=== PATIENT | female | born 1975 | race Caucasian/White ===

== ENCOUNTER 2018-07-27 14:41 | Inpatient (IN) | payer SELFPAY ==
[2018-07-27] VITALS (9 sets, daily range): BP systolic 108–114; BP diastolic 64–82
[~2018-07-27] VITALS: Ht 172.7 cm; Wt 59.9 kg
--- NOTE | 2018-07-27 14:41 | NUR ---
PT BIB SELF C/O vaginal bleeding x 7 dayS, PT IS AAOX4, NOT IN RESPIRATORY DISTRESS, V/S STABLE, KEPT RESTED AND COMFORTABLE.
--- NOTE | 2018-07-27 15:10 | NUR ---
PT SEEN AND EXAMINED BY ASHUTOSH TRAORE.
--- NOTE | 2018-07-27 15:30 | NUR ---
PT IV LINE ESTABLISHED, LABS DRAWNED AND SENT TO LAB.
--- NOTE | 2018-07-27 15:36 | NUR ---
TECH AT BEDSIDE FOR PELVIC US.
[2018-07-27 15:37] LABS: BASOPHILS # (AUTO) 0.1 /CMM (0.0-0.2); BASOPHILS % (AUTO) 1.1 % (0.0-2.0); EOSINOPHILS % (AUTO) 2.6 % (0.0-6.0); HEMATOCRIT 26 % (33-45); HEMOGLOBIN 7.2 g/dL (11.5-14.8); LYMPHOCYTES # (AUTO) 2.5 /CMM (0.8-4.8); LYMPHOCYTES % (AUTO) 35.3 % (20.0-44.0); MEAN CORPUSCULAR HGB CONC 28 g/dl (31.0-36.0); MEAN CORPUSCULAR VOLUME 60 fL (82-100); MONOCYTES # (AUTO) 0.4 /CMM (0.1-1.30); MONOCYTES % (AUTO) 6.1 % (2.0-12.0); NEUTROPHILS # (AUTO) 3.8 /CMM (1.8-8.9); NEUTROPHILS % (AUTO) 54.9 % (43.0-81.0); PLATELET COUNT (AUTO) 436 /CMM (150-450); RED BLOOD CELL COUNT(AUTO) 4.29 MIL/uL (4.0-5.2)
[2018-07-27 15:46] LABS: CALCIUM, SERUM 9.2 mg/dL (8.5-10.1); CREATININE 0.6 mg/dL (0.6-1.3); POTASSIUM 3.6 mmol/L (3.5-5.1)
[2018-07-27 15:57] LABS: ALBUMIN 4.1 g/dL (3.4-5.0); BILIRUBIN,DIRECT 0.1 mg/dL (0.0-0.2); BILIRUBIN,TOTAL 0.3 mg/dL (0.2-1.0); TOTAL PROTEIN, SERUM 8.2 g/dL (6.4-8.2)
--- NOTE | 2018-07-27 16:15 | NUR ---
DR JOLIE MENDEZ
--- NOTE | 2018-07-27 18:45 | NUR ---
AGUSTÍNII ONION TOPPER AT BEDSIDE FOR PELVIC EXAM, NOTED BLEEDING UPON EXAMINATION.
[2018-07-27] MEDS ORDERED: MEGESTROL ACETATE 40 MG TABLET PO ONE (19:00)
--- NOTE | 2018-07-27 19:08 | NUR ---
STEVEN PAGED, KELVIN MICHAEL CAUL PULLER SERVER MANAGER
[2018-07-27] MEDS ORDERED: HYDROCODONE/APAP 5/325MG 1 EACH TABLET PO PRN ×2 (19:30→20:30)
[2018-07-27] MEDS ORDERED: MAG HYDROX/AL HYDROX/SIMETH 30 ML UDC PO PRN ×2 (19:30→20:30)
[2018-07-27] MEDS ORDERED: ACETAMINOPHEN 325 MG TABLET PO PRN ×2 (19:30→20:30)
[2018-07-27] MEDS ORDERED: MAGNESIUM HYDROXIDE 30 ML UDC PO PRN ×2 (19:30→20:30)
[2018-07-27] MEDS ORDERED: IV NS 0.9% 1,000 ML BAG IV ONE (19:30)
[2018-07-27] MEDS ORDERED: ONDANSETRON HCL/PF 4 MG/2 ML VIAL IVP PRN ×2 (19:30→20:30)
[2018-07-27] MEDS ORDERED: ZOLPIDEM TARTRATE 5 MG TABLET PO PRN ×2 (19:30→20:30)
[2018-07-27] MEDS ORDERED: Z GUARD REMEDY 2 OZ OINT TP PRN ×2 (19:30→20:30)
[2018-07-27 19:32] LABS: HEMOGLOBIN 6.5 g/dL (11.5-14.8)
--- NOTE | 2018-07-27 19:32 | NUR ---
CALLED NURSING SUP. FOR TELE BED
--- NOTE | 2018-07-27 20:00 | NUR ---
TELE 316-1
--- NOTE | 2018-07-27 20:11 | NUR ---
REPORT GIVEN TO RN RVI FOR DIMA, IV NS STILL INFUSING.
--- NOTE | 2018-07-27 20:11 | NUR ---
Lukasz campo in EDM - 07/27/18 at 2016 by NICOLASA REPORT GIVEN TO RN RVI FOR DIMA, IV NS STILL INFUSING.
--- NOTE | 2018-07-27 20:23 | NUR ---
RECEIVED PATIENT FROM ER FOR DX VAGINAL BLEEDING. AO X 3, ABLE TO MAKE NEEDS KNOWN. NO ACUTE DISTRESS NOTED. DENIES ANY PAIN AT THIS TIME. VERY SCANT VAGINAL BLEEDING NOTED AT THIS TIME. SKIN INTACT. TELE READING SINUS RHYTHM HR 79. IV SITE PATENT, INTACT; FLUSHED. SAFETY REMINDERS GIVEN. ORIENTATION TO ROOM AND UNIT GIVEN TO PATIENT. ON LOW BED WITH BILATERAL UPPER SIDE RAILS UP. CALL [facility]NA WITHIN EASY REACH. WILL CONTINUE TO MONITOR.
[2018-07-28] VITALS (7 sets, daily range): BP systolic 107–118; BP diastolic 64–72
--- NOTE | 2018-07-28 01:56 | NUR ---
PER KELVIN TRAORE, ORDER H/H TO BE DRAWN ONE HOUR AFTER BLOOD TRANSFUSION AND Q 4 HOURS THEREAFTER, NOTED AND CARRIED OUT. PATIENT MADE AWARE.
[2018-07-28 02:34] LABS: HEMOGLOBIN 7.3 g/dL (11.5-14.8)
--- NOTE | 2018-07-28 06:11 | NUR ---
PATIENT ASLEEP, EASILY AROUSABLE. RESPIRATIONS EVEN. NO SIGNS OF PAIN NOTED. PATIENT TOLERATED BLOOD TRANSFUSION WITH NO ADVERSE REACTION. H/H ONE HOUR AFTER TRANSFUSION IS 7.3/24. NEEDS ATTENDED. SAFETY PRECAUTIONS AND COMFORT MEASURES IN PLACE. WILL GIVE REPORT TO DAY SHIFT FOR CONTINUITY OF CARE.
[2018-07-28] MEDS ORDERED: PANTOPRAZOLE 40 MG TABLET.DR PO SCH (07:30)
--- NOTE | 2018-07-28 07:35 | NUR ---
ms rn receive don bed, awake,alert,oriented x4,not in any form of distress noted, came in w/ vaginal bleeding, no active bleeding at this time. lungs are clear,abdomen soft,positive bowel sounds, denies pain at this time, all needs attended.
[2018-07-28 08:03] LABS: BASOPHILS # (AUTO) 0.1 /CMM (0.0-0.2); BASOPHILS % (AUTO) 1.4 % (0.0-2.0); EOSINOPHILS % (AUTO) 4.9 % (0.0-6.0); HEMATOCRIT 25 % (33-45); HEMOGLOBIN 7.5 g/dL (11.5-14.8); LYMPHOCYTES # (AUTO) 2.2 /CMM (0.8-4.8); LYMPHOCYTES % (AUTO) 33.4 % (20.0-44.0); MEAN CORPUSCULAR HGB CONC 30 g/dl (31.0-36.0); MEAN CORPUSCULAR VOLUME 62 fL (82-100); MONOCYTES # (AUTO) 0.6 /CMM (0.1-1.30); MONOCYTES % (AUTO) 9.5 % (2.0-12.0); NEUTROPHILS # (AUTO) 3.4 /CMM (1.8-8.9); NEUTROPHILS % (AUTO) 50.8 % (43.0-81.0); PLATELET COUNT (AUTO) 312 /CMM (150-450); RED BLOOD CELL COUNT(AUTO) 4.01 MIL/uL (4.0-5.2); WHITE BLOOD COUNT (AUTO) 6.6 K/uL (4.3-11.0)
[2018-07-28 08:23] LABS: CALCIUM, SERUM 8.2 mg/dL (8.5-10.1); CREATININE 0.5 mg/dL (0.6-1.3); MAGNESIUM 1.8 mg/dL (1.8-2.4); PHOSPHORUS 3.2 mg/dL (2.5-4.9); POTASSIUM 3.7 mmol/L (3.5-5.1)
[2018-07-28 08:30] LABS: THYROID STIMULATING HORMONE 3.133 uIU/mL (0.358-3.74)
[2018-07-28 08:45] LABS: LYMPHOCYTES % (MANUAL) 28 % (16-48); MONOCYTES % (MANUAL) 7 % (0-11.0); NEUTROPHILS % (MANUAL) 65 (42-76)
[2018-07-28] MEDS ORDERED: DOCUSATE SODIUM 100 MG CAPSULE PO SCH (09:00)
[2018-07-28] MEDS ORDERED: MEGESTROL ACETATE 40 MG TABLET PO SCH (09:00)
[2018-07-28] MEDS: MEGESTROL ACETATE 40 MG TABLET PO SCH (09:20)
[2018-07-28] MEDS: PANTOPRAZOLE 40 MG TABLET.DR PO SCH (09:20)
[2018-07-28] MEDS: DOCUSATE SODIUM 100 MG CAPSULE PO SCH ×2 (09:20→18:12)
--- NOTE | 2018-07-28 09:55 | NUR ---
ms martin breakfast served,due meds given,.tolerated well.
--- NOTE | 2018-07-28 10:30 | NUR ---
ms rn left message to dr. queen's cell phone for consult.
[2018-07-28 13:14] LABS: HEMOGLOBIN 8.4 g/dL (11.5-14.8)
--- NOTE | 2018-07-28 18:50 | NUR ---
ms rn still waiting for dr. reyes, patient still here, maybe d/c tomorrow.
--- NOTE | 2018-07-28 19:30 | NUR ---
RECEIVED PATIENT IN BED AWAKE. AO X 3, ABLE TO MAKE NEEDS KNOWN. NO ACUTE DISTRESS NOTED. DENIES ANY PAIN AT THIS TIME. NOTED TO HAVE VERY SCANT BLEEDING AT THIS TIME. IV SITE PATENT, INTACT; FLUSHED. SAFETY REMINDERS GIVEN. ON LOW BED WITH BILATERAL UPPER SIDE RAILS UP. CALL [facility]ARENA WITHIN EASY REACH. WILL CONTINUE TO MONITOR.
--- NOTE | 2018-07-29 06:30 | NUR ---
PATIENT ASLEEP, EASILY AROUSABLE. RESPIRATIONS EVEN. NO SIGNS OF PAIN NOTED. NEEDS ATTENDED. SAFETY PRECAUTIONS AND COMFORT MEASURES IN PLACE. WILL GIVE REPORT TO DAY SHIFT FOR CONTINUITY OF CARE.
--- NOTE | 2018-07-29 07:15 | NUR ---
RN NOTES PATIENT A/OX4, BREATHING EVEN AND UNLABORED, PER PATIENT SHE DOESN'T HAVE ANY EPISODES OF VAGINAL BLEEDING ANYMORE. DENIES PAIN OR DISCOMFORT, CALL LIGHT WITHIN REACH, WILL CONTINUE TO MONITOR.
[2018-07-29 07:55] LABS: BASOPHILS # (AUTO) 0.1 /CMM (0.0-0.2); BASOPHILS % (AUTO) 1.7 % (0.0-2.0); EOSINOPHILS % (AUTO) 8.4 % (0.0-6.0); HEMATOCRIT 26 % (33-45); HEMOGLOBIN 7.6 g/dL (11.5-14.8); LYMPHOCYTES # (AUTO) 1.9 /CMM (0.8-4.8); LYMPHOCYTES % (AUTO) 29.2 % (20.0-44.0); MEAN CORPUSCULAR HGB CONC 30 g/dl (31.0-36.0); MEAN CORPUSCULAR VOLUME 62 fL (82-100); MONOCYTES # (AUTO) 0.7 /CMM (0.1-1.30); MONOCYTES % (AUTO) 11.3 % (2.0-12.0); NEUTROPHILS # (AUTO) 3.1 /CMM (1.8-8.9); NEUTROPHILS % (AUTO) 49.4 % (43.0-81.0); PLATELET COUNT (AUTO) 316 /CMM (150-450); RED BLOOD CELL COUNT(AUTO) 4.13 MIL/uL (4.0-5.2); WHITE BLOOD COUNT (AUTO) 6.3 K/uL (4.3-11.0)
[2018-07-29 08:00] VITALS: BP 107/67
[2018-07-29 08:24] LABS: CALCIUM, SERUM 8.6 mg/dL (8.5-10.1); CREATININE 0.6 mg/dL (0.6-1.3); POTASSIUM 3.5 mmol/L (3.5-5.1)
[2018-07-29] MEDS: MEGESTROL ACETATE 40 MG TABLET PO SCH (08:52)
[2018-07-29] MEDS: PANTOPRAZOLE 40 MG TABLET.DR PO SCH (08:52)
[2018-07-29] MEDS: DOCUSATE SODIUM 100 MG CAPSULE PO SCH (08:52)
[2018-07-29 08:53] LABS: BAND % (MANUAL) 1 % (0.0-5.0); EOSINOPHILS % (MANUAL) 9 % (0-4); LYMPHOCYTES % (MANUAL) 27 % (16-48); MONOCYTES % (MANUAL) 12 % (0-11.0); NEUTROPHILS % (MANUAL) 51 (42-76)
--- NOTE | 2018-07-29 11:30 | NUR ---
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 PATIENT DENIES VAGINAL BLEEDING AT T HIS TIME, RESOURCES GIVEN TO PATIENT, RE: WALK IN CLINIC AT [facility]. PATIENT'S DISCHARGE INSTRUCTIONS PROVIDED AND VERBALIZED UNDERSTANDING. PIV REMOVED, BELONGINGS RECONCILED INCLUDING PATIENT'S MONEY, ALL COMPLETE. INFORMED PATIENT TO FOLLOW UP WITH PRIMARY MD AND OB POSSIBLY WITHIN 3-5 DAYS RE: BLEEDING AND ANEMIA. PATIENT UNDERSTOOD INSTRUCTIONS. PATIENT LEFT THE FACILITY IN STABLE CONDITION.
== END 2018-07-29 11:25 | disposition home or self-care (01) | DRG 760 ==
LOC: ER 14:46 → TELE 20:27 → MED 07-28 11:15
PROVIDERS: ADMIT Registered Nurse; ATTEND Family Medicine
PROC: 30233N1 Transfusion of Nonautologous Red Blood Cells into Peripheral Vein, Percutaneous Approach (ICD-10-PCS; principal; 2018-07-27)
DX: N93.9 Abnormal uterine and vaginal bleeding, unspecified (principal); D62 Acute posthemorrhagic anemia; N84.0 Polyp of corpus uteri; N88.8 Other specified noninflammatory disorders of cervix uteri; N83.201 Unspecified ovarian cyst, right side; N83.202 Unspecified ovarian cyst, left side
CPT/HCPCS: 36415; 76856-TC; 80048-TC; 80061-TC; 80076-TC; 83735-TC; 84100-TC; 84443-TC; 84702-TC; 85025-TC; 85027-TC; 85730-TC; 86850-TC; 86921-TC; 87081-TC; G0378; J7030; P9016-BL

== ENCOUNTER 2021-01-16 12:38 | Emergency (ER) | payer MEDICAID, OTHER ==
[~2021-01-16] VITALS: Ht 170.2 cm; Wt 57.6 kg
--- NOTE | 2021-01-16 12:55 | NUR ---
BIBS FOR C/O VAGINAL BLEEDING X 3 WEEKS, WORSENING IN PAST 3 DAYS. DENIES PAIN. ABDOMEN SOFT AND NON-DISTENDED. WILL CONTINUE TO MONITOR THE PATIENT.
[2021-01-16 13:36] LABS: HEMOGLOBIN 13.3 g/dL (11.5-14.8)
--- NOTE | 2021-01-16 13:36 | NUR ---
URINE COLLECTED AND SENT TO THE LAB
[2021-01-16 13:40] LABS: CALCIUM, SERUM 9.4 mg/dL (8.5-10.1); CREATININE 0.7 mg/dL (0.6-1.3); POTASSIUM 4.4 mmol/L (3.5-5.1)
[2021-01-16 13:43] LABS: BASOPHILS # (AUTO) 0.1 K/uL (0.0-0.2); BASOPHILS % (AUTO) 1.2 % (0.0-2.0); EOSINOPHILS % (AUTO) 5.4 % (0.0-6.0); HEMATOCRIT 40 % (33-45); LYMPHOCYTES # (AUTO) 1.7 K/uL (0.8-4.8); LYMPHOCYTES % (AUTO) 26.8 % (20.0-44.0); MEAN CORPUSCULAR HGB CONC 33 g/dl (31.0-36.0); MEAN CORPUSCULAR VOLUME 86 fL (82-100); MONOCYTES # (AUTO) 0.5 K/uL (0.1-1.30); MONOCYTES % (AUTO) 8.1 % (2.0-12.0); NEUTROPHILS # (AUTO) 3.6 K/uL (1.8-8.9); NEUTROPHILS % (AUTO) 58.5 % (43.0-81.0); PLATELET COUNT (AUTO) 294 K/uL (150-450); RED BLOOD CELL COUNT(AUTO) 4.69 MIL/uL (4.0-5.2); WHITE BLOOD COUNT (AUTO) 6.2 K/uL (4.3-11.0)
[2021-01-16 13:46] LABS: BILIRUBIN,DIRECT 0.1 mg/dL (0.0-0.2); BILIRUBIN,TOTAL 0.5 mg/dL (0.2-1.0); TOTAL PROTEIN, SERUM 8.3 g/dL (6.4-8.2)
--- NOTE | 2021-01-16 15:01 | NUR ---
Patient discharged to home in stable condition. Written and verbal after care instructions given. Patient verbalizes understanding of instruction.
[2021-01-16 15:02] VITALS: BP 118/63
== END 2021-01-16 15:02 | disposition home or self-care (01) ==
LOC: ER 12:41
DX: N93.9 Abnormal uterine and vaginal bleeding, unspecified (principal)
CPT/HCPCS: 36415; 76856-TC; 80048-TC; 80076-TC; 84703-TC; 85025-TC; 85730-TC

== ENCOUNTER 2021-01-22 13:04 | Emergency (ER) | payer OTHER ==
[~2021-01-22] VITALS: Ht 170.2 cm; Wt 57.6 kg
--- NOTE | 2021-01-22 13:50 | NUR ---
TO ER BED 16, C/O C/O VAGINAL BLEEDING SINCE 01/15. WAS HERE ON 01/16. "NOT REALLY BLEEDING BUT MORE OF A BROWN STAIN ", A&OX4, BREATHING EVEN AND UNLABORED
[2021-01-22 15:56] LABS: BASOPHILS # (AUTO) 0.1 K/uL (0.0-0.2); BASOPHILS % (AUTO) 0.9 % (0.0-2.0); EOSINOPHILS % (AUTO) 3.9 % (0.0-6.0); HEMATOCRIT 35 % (33-45); HEMOGLOBIN 11.1 g/dL (11.5-14.8); LYMPHOCYTES # (AUTO) 2.1 K/uL (0.8-4.8); MEAN CORPUSCULAR HGB CONC 32 g/dl (31.0-36.0); MEAN CORPUSCULAR VOLUME 87 fL (82-100); MONOCYTES # (AUTO) 0.6 K/uL (0.1-1.30); MONOCYTES % (AUTO) 8.3 % (2.0-12.0); NEUTROPHILS # (AUTO) 3.9 K/uL (1.8-8.9); NEUTROPHILS % (AUTO) 55.9 % (43.0-81.0); PLATELET COUNT (AUTO) 297 K/uL (150-450); RED BLOOD CELL COUNT(AUTO) 3.96 MIL/uL (4.0-5.2); WHITE BLOOD COUNT (AUTO) 6.9 K/uL (4.3-11.0)
[2021-01-22 16:31] LABS: CREATININE 0.6 mg/dL (0.6-1.3); POTASSIUM 3.8 mmol/L (3.5-5.1)
[2021-01-22] MEDS ORDERED: PROG100C15 PO (17:44)
[2021-01-22 18:16] VITALS: BP 128/87
== END 2021-01-22 18:16 | disposition home or self-care (01) ==
LOC: ER 13:06
DX: N93.9 Abnormal uterine and vaginal bleeding, unspecified (principal); D64.9 Anemia, unspecified; Z79.899 Other long term (current) drug therapy
CPT/HCPCS: 36415; 76856-TC; 80048-TC; 84702-TC; 85025-TC; 85730-TC

== ENCOUNTER 2021-01-25 00:32 | Emergency (ER) | payer OTHER ==
[~2021-01-25] VITALS: Ht 172.7 cm; Wt 59.9 kg
[~2021-01-25 00:32] MED LIST: PROG100C15 PO
--- NOTE | 2021-01-25 00:53 | NUR ---
PT LEFT ER STABLE WITHOUT BEING TREATED. PT REFUSED TO SIGN AMA.
[2021-01-25 00:56] VITALS: BP 120/77
--- NOTE | 2021-01-25 01:01 | NUR ---
PT ELOPED FROM ER.
== END 2021-01-25 00:56 | disposition home or self-care (01) ==
LOC: ER 00:34
DX: N93.9 Abnormal uterine and vaginal bleeding, unspecified (principal); D64.9 Anemia, unspecified; Z79.899 Other long term (current) drug therapy